=== PATIENT | female | born 1975 | race African-American/Black ===

== ENCOUNTER 2018-06-26 10:21 | Emergency (ER) | payer SELFPAY ==
[~2018-06-26] VITALS: Ht 152.4 cm; Wt 52.0 kg
[2018-06-26 15:47] LABS: BASOPHILS % 0.7 % (0.0-2.0); EOSINOPHILS % 0.1 % (0.0-5.0); HEMOGLOBIN. 13.4 g/dL (12.0-16.0); LYMPHOCYTES % 17.7 % (20.0-50.0); MEAN CORPUSCULAR HEMOGLOBIN 29.8 pg (28.0-32.0); MEAN CORPUSCULAR VOLUME 89.1 fL (81.0-99.0); MEAN PLATELET VOLUME 8.3 fl (7.4-10.4); MONOCYTES % 6.7 % (2.0-8.0); NEUTROPHILS % 74.8 % (40.0-76.0); PLATELET 264 x1000/uL (130-400); RED BLOOD CELL COUNT 4.49 mill/uL (4.2-5.4); RED CELL DISTRIBUTION WIDTH 13.5 % (11.6-14.6)
[2018-06-26 15:48] LABS: CHLORIDE 106 mEq/L (98-107)
[2018-06-26 15:49] LABS: INR 1.1; PROTHROMBIN TIME 10.6 sec (9.1-11.1)
[2018-06-26 16:01] LABS: B-HCG QUANTITATIVE 944 mIU/mL (<3)
[2018-06-26 17:00] VITALS: BP 97/64
== END 2018-06-26 17:47 | disposition home or self-care (01) ==
LOC: ER 14:57
DX: O03.9 Complete or unspecified spontaneous abortion without complication (principal); Z88.0 Allergy status to penicillin
CPT/HCPCS: 36415; 76801; 84702; 86850; 86900; 99285